=== PATIENT | female | born 1985 | race Caucasian/White ===

== ENCOUNTER 2017-12-06 17:07 | Inpatient (IN) | payer OTHER ==
[~2017-12-06] VITALS: Ht 166.4 cm; Wt 87.0 kg
[~2017-12-06 17:07] MED LIST: ACYCLOVIR200 MG PO; AUGMENTIN 875-1 EACH PO; BUPROPION XL300 MG; CYMBALTA30 MG PO; FOLIC ACID1 MG PO; GUANFACINE HCL1 MG PO; KEFLEX250 MG PO; MONONESSA1 EACH PO; PRENATAL COMPL1 EACH PO; SAPHRIS10 MG; SAPHRIS5 MG SL; TERBINAFINE HC250 MG PO; TRAZODONE HCL50 MG PO; WELLBUTRIN XL300 MG PO
--- NOTE | 2017-12-06 18:25 | PR ---
[facility] [address] [facility] [place], [place] [address] Signed Progress Notes IP Datetime Report Generated by CPN: 12/06/2017 18:25 PROGRESS NOTES: [id number] Impression: Normal progression of labor Procedures: Artificial ROM; Sterile Vag Exam Plan: Continue present management Informed Consent Obtain: Vaginal Delivery; Risks, Benefits and Alternatives Discussed VITAL SIGNS: [id number] Vital Signs: Reviewed EXAM: [id number] Dilatation: 6.0 Effacement: 90 Station: -1 Uterine Contractions: every two to three minutes MEMBRANES: [id number] Membrane Status: Bulging ROM Note: amniotomy performed - clear, copious amount of fluid Comments: patient comfortable, breathing through contractions Fetus A: [id number] FHR Baseline: 130's Variability: Moderate 6-25bpm Accelerations: 15X15 Decelerations: None FHR Category: Category I Presentation: Vertex Comments on Fetus A: reactive Fetus B: [id number] Signing Physician: Marcela Solano MD Copies: ~ *Electronically Signed* 12/06/17 1825 MARCELA SOLANO MD PATIENT NAME: TEVIN MITCHELL PROGRESS NOTE DATE OF : 81 PHYSICIAN: MARCELA SOLANO MD RPT #: [id number] REPORT IS CONFIDENTIAL AND NOT TO BE RELEASED WITHOUT AUTHORIZATION
--- NOTE | 2017-12-06 19:51 | PR ---
[facility] [address] [facility] [place] [place] [address] Signed Progress Notes IP Datetime Report Generated by CPN: 12/06/2017 19:51 PROGRESS NOTES: [id number] Impression: Reassuring heart rate Procedures: Sterile Vag Exam Plan: Continue present management Informed Consent Obtain: Vaginal Delivery VITAL SIGNS: [id number] Vital Signs: Reviewed EXAM: [id number] Dilatation: 6.5 Effacement: 90 Station: -1 Uterine Contractions: every one to two minutes MEMBRANES: [id number] Membrane Status: Ruptured Amniotic Fluid Color: Clear ROM Note: amniotomy performed - clear, copious amount of fluid Comments: hand presenting in front of head - reduced. Fetus A: [id number] FHR Baseline: 120's Variability: Moderate 6-25bpm Accelerations: 15X15 Decelerations: None FHR Category: Category I Presentation: Compound Comments on Fetus A: reactive Fetus B: [id number] Signing Physician: Marcela Solano MD Copies: ~ *Electronically Signed* 12/06/171950 MARCELA SOLANO MD PATIENT NAME: TEVIN MITCHELL PROGRESS NOTE DATE OF : 81 PHYSICIAN: MARCELA SOLANO MD RPT #: [id number] REPORT IS CONFIDENTIAL AND NOT TO BE RELEASED WITHOUT AUTHORIZATION
--- NOTE | 2017-12-07 10:18 | PR ---
[facility] [address] [facility] [place] [address] Signed PP Progress Notes Datetime Report Generated by CPN: 12/07/2017 10:18 SUBJECTIVE: [id number] Pain: Within normal limits Nausea/Vomiting: Denies Flatus: Yes Vital Signs: [id number] Vital Signs: Reviewed; Within Normal Limits EXAM: [id number] Cardiovascular: Normal Respiratory: Normal Abdomen/Uterus: Normal Lochia: Normal Vulva/Perineum: Normal Breasts: Normal CVA Tenderness: Normal Extremities: Normal Incision: Not Applicable Progress: Normal IMPRESSION/PLAN/PROCEDURES: [id number] Impression: Normal progression Plan: Continue present management Procedures: None Progress Notes: patient doing well. Signing Physician: Marcela Solano MD Copies: ~ *Electronically Signed* 12/07/17 1018 MARCELA SOLANO MD PATIENT NAME: TEVIN MITCHELL PROGRESS NOTE DATE OF : 81 PHYSICIAN: MARCELA SOLANO MD RPT #: [id number] REPORT IS CONFIDENTIAL AND NOT TO BE RELEASED WITHOUT AUTHORIZATION
== END 2017-12-08 12:15 | disposition home or self-care (01) | DRG 775 ==
LOC: FBC 17:07
PROVIDERS: ADMIT Obstetrics & Gynecology
PROC: 10E0XZZ Delivery of Products of Conception, External Approach (ICD-10-PCS; principal; 2017-12-06)
PROC: 10907ZC Drainage of Amniotic Fluid, Therapeutic from Products of Conception, Via Natural or Artificial Opening (ICD-10-PCS; principal; 2017-12-06)
PROC: 0KQM0ZZ Repair Perineum Muscle, Open Approach (ICD-10-PCS; principal; 2017-12-06)
DX: O40.3XX0 Polyhydramnios, third trimester, not applicable or unspecified (principal); O99.354 Diseases of the nervous system complicating childbirth; Z3A.39 39 weeks gestation of pregnancy; Z37.0 Single live birth; O70.1 Second degree perineal laceration during delivery; O66.0 Obstructed labor due to shoulder dystocia; O24.429 Gestational diabetes mellitus in childbirth, unspecified control; O90.81 Anemia of the puerperium; G40.909 Epilepsy, unspecified, not intractable, without status epilepticus; Z87.891 Personal history of nicotine dependence; O99.313 Alcohol use complicating pregnancy, third trimester
CPT/HCPCS: 36415; 85027; J2590; J3010; J7120

== ENCOUNTER 2019-03-08 09:29 | Emergency (ER) | payer MEDICAID ==
[~2019-03-08] VITALS: Ht 165.1 cm; Wt 83.0 kg
[2019-03-08] MEDS ORDERED: IBUPROFEN800 MG PO (09:58)
[2019-03-08] MEDS ORDERED: CYCLOBENZAPRINE10 MG PO (10:45)
== END 2019-03-08 11:37 | disposition home or self-care (01) ==
LOC: ED 09:29
DX: M54.5 Low back pain (principal); Z87.891 Personal history of nicotine dependence
CPT/HCPCS: 81001; 84703; 96372; 99283-25; J1885